=== PATIENT | female | born 1995 | race Caucasian/White ===

== ENCOUNTER → 2023-11-18 12:40 | Outpatient (CLI) | payer OTHER, SELFPAY ==
--- NOTE | 2023-11-18 12:41 | DI.RAD.S_ITS ---
PROCEDURE: HL HYSTEROSAPINGOGRAPHY INDICATIONS: Infertility COMPARISON: [facility], US, US PELVIC COMPLETE, 10/26/2023, 10:20. FINDINGS: Patient had a documented negative test prior to the study. Following speculum insertion, a balloon-tip catheter was inserted into the cervical canal, and secured by inflating the balloon. Contrast was then injected into the endometrial canal. Uterus: The uterine cavity appears normal in size and morphology, without synechiae or masses. Fallopian tubes: Left fallopian tube fills with contrast, and appear normal in caliber and morphology. There is dispersion of contrast into the left peritoneal cavity. Right fallopian tube fills with contrast and appears normal in caliber and morphology. There is questionable dispersion of contrast in the right peritoneal cavity. IMPRESSION: Passage of contrast through the left fallopian tube. Questionable passage of contrast in the right fallopian tube. Normal size and shape of the uterine cavity. Dictated by: Keyon Daniel M.D. on 11/18/2023 at 14:31 Approved by: Keyon Daniel M.D. on 11/18/2023 at 14:35
--- NOTE | 2023-11-19 17:43 | PM.PROC.1 ---
Procedures Date/Time Date of procedure: 11/18/23 Time of procedure: 13:20 General Procedure description: Hysterosalpingogram Informed consent was obtained. Risks and benefits of the procedure were explained to the patient The patient was placed on the fluoroscopy table with her bottom on the overturned bedpan. A bivalve speculum was placed into the vagina. A single-tooth tenaculum was placed on the anterior lip of the cervix. The cervix was cleaned x3 with Betadine. The HSG catheter passed easily into the endometrial cavity. The balloon was filled with 3 cc of air. The bivalve speculum was removed from the vagina. Under direct fluoroscopic examination, 13 cc of Isovue-300 was injected into the uterus. The uterus filled and was normal in configuration. There was spill from the left tube. The pressure pushed the balloon out of the cervix. The bivalve speculum was placed. A new catheter was placed into the uterus and refilled with 3 cc of air. Another 13 cc of Isovue 300 were injected and there was no spill from the right tube. There appeared to be an abrupt cut off approximately 1-1/2-2 cm from the cornua. The Isovue was removed from the uterus. The single-tooth tenaculum was removed from the anterior lip of the cervix. The bivalve speculum was removed from the vagina. Sponge count was correct x2. Instrument count was correct x2. The patient tolerated the procedure well. Complications: none
== END ==
LOC: RAD 12:41
PROVIDERS: PCP Nurse Practitioner; Referring Provider Obstetrics & Gynecology; Visit Provider Obstetrics & Gynecology
DX: N97.9 Female infertility, unspecified (principal)
CPT/HCPCS: 58340; 74740